=== PATIENT | male | born 1990 | race Caucasian/White ===

== ENCOUNTER 2018-12-05 18:06 | Emergency (ER) | payer OTHER ==
[~2018-12-05] VITALS: Ht 175.3 cm; Wt 56.7 kg
[~2018-12-05 18:06] MED LIST: IBUPROFEN 600600 M1 PO; NAPROSYN500 MG; TRAMADOL 50 MG50 MG PO
[2018-12-05] MEDS ORDERED: BACTRIM DS TAB1 EACH PO (19:45)
[2018-12-05] MEDS ORDERED: NAPROSYN500 M1 PO (19:45)
[2018-12-05 20:10] VITALS: BP 144/82
== END 2018-12-05 20:36 | disposition home or self-care (01) ==
LOC: M.ERS 18:06
DX: S90.511A Abrasion, right ankle, initial encounter (principal); S80.212A Abrasion, left knee, initial encounter; S50.312A Abrasion of left elbow, initial encounter; S20.412A Abrasion of left back wall of thorax, initial encounter; V19.49XA Pedal cycle driver injured in collision with other motor vehicles in traffic accident, initial encounter; Y93.89 Activity, other specified; Y92.89 Other specified places as the place of occurrence of the external cause; Y99.8 Other external cause status